=== PATIENT | male | born 1975 | race Caucasian/White ===

== ENCOUNTER → 2021-04-19 | Emergency (ER) | payer OTHER ==
[~2021-04-19] VITALS: Ht 175.3 cm; Wt 54.4 kg
[~2021-04-19] MED LIST: ABILIFY; ABILIFY15 MG; DEPAKOTE; DEPAKOTE ER500 MG; DOXYCYCLINE 10100 MG; FLUPHENAZINE 1 MG IM; HYDROCHLOROTHIA25 M2; HYDROCHLOROTHIAZIDE; HYDROCODON-ACE1 EAC7 PO; LATUDA20 MG PO; PRILOSEC PO; PRILOSEC40 MG; PRINIVIL20 M1 PO; SIMVASTATIN; SIMVASTATIN40 MG
--- NOTE | ~2021-04-19 | EMS ---
[address] [address] EMS Patient Care Report Name: TRISTAN BURKETT II Room #: REG ETIENNE Rachel#: [id number] Admission: 04/19/21 Attend Phys: Discharge: Date of : 75 Report #: [id number] THIS REPORT FOR: //name// Report Transmitted: 04/22/2021 08:19 EMS Care Summary [place], [place]/[facility] Incident [id number] @ 04/19/2021 14:55 Incident Location [address] [place] [address] Patient TRISTAN MCCOLLUM Male, 45 Years 1975 Patient Address [id number] [place] [address] Patient History Behavioral/Psychiatric Disorder, Patient Allergies Sulfa,Haldol, Patient Medications Unknown, Chief Complaint SI/HI Disposition Transported No Lights/[place] Dispatch Reason Psychiatric Problem/Abnormal Behavior/Suicide Attempt Transported To [facility] Narrative M36 dispatched on a psych. M36 arrived to boarding house to find PT walking out to ambulance with PD. PD stated PT voluntary being seen for a psych evaluation. PT stated SI/HI as chief complaint. PT stated he "will burn that house down if I have to go back there." PT stated "they won't let me shave or wash my own [address] [address] EMS Patient Care Report Name: TRISTAN BURKETT II [id number] Admission: 04/19/21 Attend Phys: Discharge: Date of : 75 Report #: [id number] dishes." PT stated "they treat me like a slave there." PT denied shortness of air, N/V/D, fever and cough. PT walked to ambulance without assistance. PT sat on stretcher and was secured with seatbelts. PT denied taking any action to harm himself or others today. PT stated his plan to harm himself is "to gouge out my eyes." PT stated recent "visit to [place]. PT stated "do not take me back to [facility]." PT chose transport to [facility]. PT vitals monitored en route. PT report given. PT stood and pivoted to hallway bed. PT care and belongings transferred to ER staff at [facility] without incident. M36 placed back in service. Initial Vitals @15:12P: 80,R: 18,BP: 118/78,Pain: 10/10,GCS: 15,CO: 2,SpO2: 98,Revised Trauma: 12, @15:08P: 88,R: 18,BP: 120/80,Pain: 10/10,GCS: 15,CO: 1,SpO2: 94,Revised Trauma: 12, Assessments @15:26MENTAL:Combative,Time Oriented,Person Oriented,Place Oriented,Event Oriented,SKIN:HEENT:LUNG SOUNDS:ABDOMEN:PELVIS//GI:EXTREMITIES:PULSE:Radial: 2+ Normal,NEURO: Impression Suicidal Ideation Procedures @15:11ALS AssessmentResponse: UnchangedSucceeded Timeline 14:54,Call Received 14:54,Dispatch Notified 14:55,Dispatched 14:56,En Route 15:06,On Scene 15:07,At Patient 15:08,BP: 120/80 M,PULSE: 88,RR: 18 R,SPO2: 94 Ox,ETCO2: ,BG: ,PAIN: 10,GCS: 15, 15:11,ALS Assessment,Response: UnchangedSucceeded, 15:12,BP: 118/78 M,PULSE: 80,RR: 18 R,SPO2: 98 Ox,ETCO2: ,BG: ,PAIN: 10,GCS: 15, 15:14,Depart Scene 15:21,At Destination 15:43,Call Closed Disclaimer v1.1 Copyright 2020 [employer] [address] [address] EMS Patient Care Report Name: MADELAINETRISTAN Luis Room #: REG ETIENNE Rachel#: [id number] Admission: 04/19/21 Attend Phys: Discharge: Date of : 75 Report #: [id number] This EMS Care Summary contains data elements from the applicable legal record (which may be displayed differently). It is designed to provide pertinent information for the following purposes: continuity of care, clinical quality, and state data reporting. The complete legal record is available to ED staff and administrators of the receiving hospital in [employer]'s Patient Tracker. All data is provided "as is."
[2021-04-19 15:48] LABS: URINE BILIRUBIN NEGATIVE (Negative); URINE BLOOD NEGATIVE (Negative); URINE CLARITY CLEAR; URINE COLOR YELLOW; URINE GLUCOSE-RANDOM* NEGATIVE (Negative); URINE KETONES NEGATIVE (Negative); URINE LEUKOCYTES-REFLEX NEGATIVE (Negative); URINE NITRITE-REFLEX NEGATIVE (Negative); URINE PROTEIN (DIPSTICK) NEGATIVE (Negative); URINE SPECIFIC GRAVITY <= 1.005 (1.005-1.035); URINE UROBILINOGEN 0.2 E.U./dl (0.2-1.0)
[2021-04-19 15:57] LABS: AMP/METHAMP Negative (Negative); BARBITURATES Negative (Negative); BENZODIAZEPINES Negative (Negative); COCAINE Negative (Negative); METHADONE Negative (Negative); OPIATES Negative (Negative); PCP Negative (Negative)
[2021-04-19 15:59] LABS: ABSOLUTE NEUTROPHILS 2.5 thou/uL (1.4-8.2); EOSINOPHILS 3.2 % (0.0-3.0); HEMATOCRIT 37.7 % (42.0-52.0); HEMOGLOBIN 12.3 gm/dL (14.0-18.0); LYMPHOCYTES 26.1 % (24.0-44.0); MCH 26.2 pg (26.0-34.0); MCHC 32.5 g/dL (28.0-37.0); MCV 80.6 fL (80.0-100.0); MONOCYTES 13.1 % (1.0-8.0); PLATELET COUNT 203 thou/uL (150-400); POLYS 56.6 % (36.0-66.0); RBC 4.68 mil/uL (4.50-6.00); RDW 16.7 % (10.5-14.5); WBC 4.4 thou/uL (4.0-11.0)
[2021-04-19 16:12] LABS: ANION GAP 4 mmol/L (7-16); BUN 13 mg/dL (7-18); CALCIUM 8.6 mg/dL (8.5-10.1); CHLORIDE 105 mmol/L (98-107); CO2 31 mmol/L (21-32); GLUCOSE 82 mg/dL (74-106); POTASSIUM 4.2 mmol/L (3.5-5.1); SODIUM 140 mmol/L (136-145)
[2021-04-19 16:15] LABS: ALBUMIN 3.6 g/dL (3.4-5.0); DIRECT BILIRUBIN < 0.1 mg/dL (<0.1-0.2); SGOT 18 U/L (15-37); SGPT 28 U/L (16-63); TOTAL BILIRUBIN 0.4 mg/dL (0.2-1.0)
[2021-04-19 20:14] VITALS: BP 118/76
== END ==
LOC: ER 15:26
PROVIDERS: Emergency Medicine
DX: R45.1 Restlessness and agitation (principal); Z20.822 Contact with and (suspected) exposure to COVID-19; F31.9 Bipolar disorder, unspecified; I10 Essential (primary) hypertension; K21.9 Gastro-esophageal reflux disease without esophagitis; Z88.5 Allergy status to narcotic agent; Z88.2 Allergy status to sulfonamides; Z79.899 Other long term (current) drug therapy; Z90.89 Acquired absence of other organs

== ENCOUNTER 2021-04-20 04:00 | Emergency (ER) | payer OTHER ==
[~2021-04-20] VITALS: Ht 177.8 cm; Wt 86.2 kg
--- NOTE | ~2021-04-20 | EMS ---
[place] [address] EMS Patient Care Report Name: TRISTAN BURKETT II Room [facility]: [facility] M.Alcides#: [id number] Admission: 04/20/21 Attend Phys: Discharge: 04/20/21 Date of : 75 Report #: [id number] THIS REPORT FOR: //name// Report Transmitted: 04/22/2021 08:21 EMS Care Summary [place], [place]/[facility] Incident [id number] @ 04/20/2021 03:34 Incident Location [address] [facility] Patient TRISTAN MCCOLLUM Male, 45 Years 1975 Patient Address [id number] [place], [place] [address] Patient History Behavioral/Psychiatric Disorder, Patient Allergies Sulfa,Haldol, Patient Medications Unknown, Chief Complaint homicidal ideations Disposition Transported No Lights/[place] Dispatch Reason Psychiatric Problem/Abnormal Behavior/Suicide Attempt Transported To [facility] Narrative M36 dispatched on a psych. M36 arrived to find PD at PT side. PT found standing in [employer] Parking lot with PD. PT stated homicidal ideations as chief complaint. PD stated they would be filling out affdavits for ER. PT stated he "would kill someone so I will not be homeless for the first time in my life." PT denied shortness of breath, N/V/D, fever and cough. PT walked to ambulance [address] [address] EMS Patient Care Report Name: TRISTAN BURKETT II Room #: [facility]#: [id number] Admission: 04/20/21 Attend Phys: Discharge: 04/20/21 Date of : 75 Report #: [id number] with EMS. PT sat on stretcher and was secured with seatbelts. PT let EMS take vitals. PT stated "they kicked me out and gave me money to come here." PT asked "can I smoke a cigarette in here?" PT vital signs monitored en route. PT report given. PT stood and pivoted to hospital hallway bed. PT care and belongings transferred to ER staff at [facility] without incident. M36 placed back in service. Initial Vitals @03:50P: 116,R: 16,BP: 130/80,Pain: 0/10,GCS: 15,CO: 3,SpO2: 96,Revised Trauma: 12, @03:48P: 86,R: 16,BP: 138/92,Pain: 0/10,GCS: 15,CO: 4,SpO2: 96,Revised Trauma: 12, Assessments @03:46MENTAL:Time Oriented,Person Oriented,Place Oriented,Event Oriented,SKIN:HEENT:LUNG SOUNDS:ABDOMEN:PELVIS//GI:EXTREMITIES:PULSE:NEURO: Impression Behavioral/psychiatric episode Procedures @03:46ALS AssessmentResponse: UnchangedSucceeded Timeline 03:33,Call Received 03:33,Dispatch Notified 03:34,Dispatched 03:40,En Route 03:45,On Scene 03:46,At Patient 03:46,ALS Assessment,Response: UnchangedSucceeded, 03:48,BP: 138/92 M,PULSE: 86,RR: 16 R,SPO2: 96 Ox,ETCO2: ,BG: ,PAIN: 0,GCS: 15, 03:50,BP: 130/80 M,PULSE: 116,RR: 16 R,SPO2: 96 Ox,ETCO2: ,BG: ,PAIN: 0,GCS: 15, 03:51,Depart Scene 03:53,At Destination 04:12,Call Closed Disclaimer v1.1 Copyright 2020 [employer] This EMS Care Summary contains data elements from the applicable legal record (which may be displayed differently). It is designed to provide pertinent information for the following purposes: continuity of care, clinical quality, and state data reporting. The complete legal record is available to ED staff and administrators of the receiving hospital in [facility]'s Patient Tracker. All data [address] [address] EMS Patient Care Report Name: TRISTAN BURKETT [facility] [id number] Admission: 04/20/21 Attend Phys: Discharge: 04/20/21 Date of : 75 Report #: [id number] is provided "as is."
== END 2021-04-20 07:00 | disposition home or self-care (01) ==
LOC: ER 04:00
DX: F91.8 Other conduct disorders (principal); F31.9 Bipolar disorder, unspecified; K21.9 Gastro-esophageal reflux disease without esophagitis; I10 Essential (primary) hypertension; Z90.89 Acquired absence of other organs; Z79.899 Other long term (current) drug therapy; Z88.2 Allergy status to sulfonamides; Z88.8 Allergy status to other drugs, medicaments and biological substances; Z77.22 Contact with and (suspected) exposure to environmental tobacco smoke (acute) (chronic)